=== PATIENT | female | born 1940 | race Caucasian/White ===

== ENCOUNTER → 2023-09-30 12:48 | Outpatient (REF) | payer MEDICARE, OTHER, SELFPAY | LOC: HWWDC 12:48 | PROVIDERS: ATTENDING PHYSICIAN Internal Medicine; REFERRING PHYSICIAN Obstetrics & Gynecology | DX: Z12.31 Encounter for screening mammogram for malignant neoplasm of breast (principal) | CPT/HCPCS: 77063; 77067 ==

== ENCOUNTER → 2023-11-26 09:51 | Outpatient (REF) | payer MEDICARE, OTHER, SELFPAY ==
[2023-11-26 12:29] LABS: % Basophils 1.3 % (0-2); % Eosinophils 0.1 % (0-6); % Immature Granulocytes 0.3 % (0-0.5); % Lymphocytes 20.7 % (20.5-51.1); % Monocytes 7.8 % (1.7-9.3); % Neutrophils 69.8 % (42.2-75.2); Absolute Basophils 0.1 10^3/uL (0-0.2); Absolute Lymphocytes 1.5 10^3/uL (1.2-3.4); Absolute Monocytes 0.6 10^3/uL (0.1-0.6); Absolute Neutrophils 5.2 10^3/uL (1.4-6.5); Hematocrit 42.2 % (37.0-47.0); Hemoglobin 13.8 g/dL (12.0-16.0); Mean Corp Hgb Conc. 32.7 g/dL (33.0-37.0); Mean Corpuscular Hgb 30.1 pg (27.0-31.0); Mean Corpuscular Volume 91.9 fL (81.0-99.0); Mean Platelet Volume 11.3 fL (7.4-10.4); Nucleated Red Blood Cells % 0 %; Platelet Count 264 10^3/uL (130-400); Red Blood Cell Count 4.59 10^6/uL (4.20-5.40); Red Cell Dist. Width 14.2 % (11.5-14.5); White Blood Cell Count 7.4 10^3/uL (4.8-10.8)
[2023-11-26 13:02] LABS: NT-proBNP 934 pg/ml
[2023-11-26 13:04] LABS: ALT (SGPT) 21 U/L (0-35); AST (SGOT) 29 U/L (14-36); Albumin 3.9 g/dl (3.5-5.0); Alkaline Phosphatase 72 U/L (38-126); Blood Urea Nitrogen 15 mg/dl (7-17); Calcium 10.1 mg/dl (8.4-10.2); Carbon Dioxide 28 mmol/L (22-30); Chloride 106 mmol/L (98-107); Glucose 99 mg/dl (70-99); LDH 182 U/L (120-246); Potassium 4.5 mmol/L (3.5-5.1); Sodium 142 mmol/L (135-145); Total Bilirubin 0.4 mg/dl (0.2-1.3); Uric Acid 3.8 mg/dl (2.5-6.2); eGFR > 60.00
[2023-11-29 02:17] LABS: Beta-2-Microglobulin 2.6 mg/L (<=3.0)
== END ==
LOC: HWLAB 09:51
PROVIDERS: ATTENDING PHYSICIAN Internal Medicine Hematology & Oncology; FAMILY PHYSICIAN Internal Medicine
DX: D47.2 Monoclonal gammopathy (principal)
CPT/HCPCS: 36415; 80053; 82232; 82784; 83521; 83615; 83880; 84155; 84165; 84550; 85025; 86334

== ENCOUNTER → 2023-12-01 10:05 | Outpatient (REF) | payer MEDICARE, OTHER, SELFPAY ==
[2023-12-01 14:11] LABS: Urine Protein 12 mg/dl (0-12)
[2023-12-01 14:52] LABS: 24 Hour Urine Total Volume 1700 ml
== END ==
LOC: HWLAB 10:05
PROVIDERS: ATTENDING PHYSICIAN Internal Medicine Hematology & Oncology; FAMILY PHYSICIAN Internal Medicine
DX: D47.2 Monoclonal gammopathy (principal)
CPT/HCPCS: 81050; 83521; 84156; 86335

== ENCOUNTER → 2023-12-10 09:47 | Outpatient (REF) | payer MEDICARE, OTHER, SELFPAY ==
[2023-12-10 12:12] LABS: Albumin 3.9 g/dl (3.5-5.0); Blood Urea Nitrogen 18 mg/dl (7-17); Calcium 9.5 mg/dl (8.4-10.2); Carbon Dioxide 27 mmol/L (22-30); Chloride 107 mmol/L (98-107); Glucose 91 mg/dl (70-99); Phosphorus 3.5 mg/dl (2.5-4.5); Potassium 4.7 mmol/L (3.5-5.1); Sodium 141 mmol/L (135-145); eGFR > 60.00
== END ==
LOC: HWLAB 09:47
PROVIDERS: ATTENDING PHYSICIAN Internal Medicine Cardiovascular Disease; FAMILY PHYSICIAN Internal Medicine
DX: I48.0 Paroxysmal atrial fibrillation (principal)
CPT/HCPCS: 36415; 80069

== ENCOUNTER 2024-02-24 06:17 | Day surgery (SDC) | payer MEDICARE, OTHER, SELFPAY ==
[2024-02-24] VITALS (9 sets, daily range): BP systolic 124–171; BP diastolic 63–101; BMI 28.4
[2024-02-24] MEDS: TYLENOL 1000 MG PO (09:34)
[2024-02-24] MEDS: NORMOSOL-R 1000 IV (09:35)
[2024-02-24] MEDS: DEMEROL 12.5 MG IV (13:04)
== END 2024-02-24 14:38 | disposition home or self-care (01) ==
LOC: SDS 06:17
PROVIDERS: ATTENDING PHYSICIAN Surgery; FAMILY PHYSICIAN Internal Medicine
DX: K64.8 Other hemorrhoids (principal); K64.2 Third degree hemorrhoids
CPT/HCPCS: 46947

== ENCOUNTER → 2024-04-27 09:29 | Outpatient (REF) | payer MEDICARE, OTHER, SELFPAY ==
[2024-04-27 13:08] LABS: HDL Cholesterol 71 mg/dl; LDL Cholesterol, Calculated 57 mg/dl; Total Cholesterol 144 mg/dl (50-199); Triglyceride 81 mg/dl (10-149); Very Low Density Lipoprotein 16 mg/dl (0-30)
== END ==
LOC: HWLAB 09:29
PROVIDERS: ATTENDING PHYSICIAN Internal Medicine
DX: E78.5 Hyperlipidemia, unspecified (principal)
CPT/HCPCS: 36415; 80061

== ENCOUNTER → 2024-05-24 10:06 | Outpatient (REF) | payer MEDICARE, OTHER, SELFPAY | LOC: HWRCS 10:06 | PROVIDERS: ATTENDING PHYSICIAN Internal Medicine Cardiovascular Disease; FAMILY PHYSICIAN Internal Medicine | DX: I70.0 Atherosclerosis of aorta (principal) | CPT/HCPCS: 93306 ==

== ENCOUNTER 2024-07-30 20:34 | Emergency (ER) | payer MEDICARE, OTHER, SELFPAY ==
[2024-07-30 20:37] VITALS: BP 185/105
--- NOTE | 2024-07-30 22:18 | ED.GENMED ---
History of Present Illness
General
Chief Complaint: Fall
Source: patient and spouse
Time Seen by Provider: 07/30/24 22:06
History of Present Illness
History of Present Illness:
84-year-old female on [facility] who had a trip and fall on , striking the front of her face. She got up, and was able to continue her day. She did apply ice to the forehead/face area. She denies loss of consciousness, neck pain, numbness,
tingling, double vision, headache, facial pain, dizziness, chest pain, shortness of breath, or other complaints. Today, she noted bruising in the inferior aspect of the orbital area bilaterally which concerned her and prompted her visit here.
Past History
Past History
ED Past Medical History: Arrthythmia, HTN and Hypercholesterolemia
ED Past Surgical History: Orthopedic
Social History
Tobacco: Non-smoker
Alcohol: None
Drug: None
Personal:
Living: with family
Phy Exam
Physical Exam
Physical Exam:
GENERAL: Alert , in no apparent distress
EYE: pupils equal and reactive, EOMI, no nystagmus, no photophobia, no pain with extraocular movements, visual starr intact
NECK: Supple, no significant adenopathy, No midline tenderness.
ENT: o/p clr, mmm, No septal hematoma, no fernandez. No infraorbital anesthesia. There is a small amount of bruising noted in the inferior aspect medially of the periorbital area soft tissue bilaterally as well as the right forehead. There is a
healing scab at the anterior aspect of the nose. No crepitus. No tenderness to palpation of facial bones, no deformity.
CARDIAC: Regular rate and rhythm, Systolic murmur noted .
LUNGS: Clear breath sounds bilaterally, no acute respiratory distress, no wheezes/rales/rhonchi
ABDOMEN: Soft, without focal tenderness, no r/g, no cvat
NEUROLOGICAL: Alert and oriented, no focal neuro deficits
SKIN: Warm and dry, skin intact.
MUSCULOSKELETAL: No edema, well perfused.
PSYCH: Normal and appropriate interaction.
Course
Orders/Labs/Results
Orders:
Orders
07/30/24 20:50
CT Head W/o Iv Contrast Urgent
Comment:
Reason For Exam: fall on xarelto
Vital Signs
Initial and Last Documented VS:
Initial Vital Signs
Temp Pulse Resp BP Pulse Ox
98.3 F 90 18 185/105 97
07/30/24 20:37 07/30/24 20:37 07/30/24 20:37 07/30/24 20:37 07/30/24 20:37
Last Documented Vital Signs
Temp Pulse Resp BP Pulse Ox
98.3 F 90 18 125/101 97
07/30/24 20:37 07/30/24 20:37 07/30/24 20:37 07/30/24 22:32 07/30/24 20:37
*Critical Care Note
Total Time (30-74mins, 75-104mins- exclusive of procedures): Not Applicable
Update Note
Update Note:
Patient presents to the Emergency Department with Fall
Number and Complexity of Problems Addressed at the Encounter
� Chronic conditions affecting care:
� Acute Exacerbation and/or Progression of Chronic Illness:
� Differential Diagnosis includes:But not limited to subdural hematoma, subarachnoid hemorrhage, epidural hematoma, periorbital fracture, etc. etc.
Amount and/or Complexity of Data to be Reviewed and Analyzed
� I performed an independent evaluation of and my interpretation is:
EKG:
CT:Read by vision that that is no acute intracranial process no evidence of acute intracranial hemorrhage, moderate frontal scalp hematoma. Air-fluid levels noted in the sphenoid sinuses incompletely visualized also present on
prior examination nonspecific though can be seen with acute sinusitis in the proper clinical context if concern for blood products from facial fracture outside of [id number] obtain dedicated CT of the face may be obtained
Xrays:
Laboratory Studies:
Other:
� Review of other/old records reveals:
� Clinical information was obtained by an independent historian: who is bedside
� Prescriptions/Medications Considered but not given:
� Further testing considered but not performed:
Risk of Complications and/or Morbidity or Mortality of Patient Management
� Social determinants of health affecting care:
� Discussion with other providers (PCP, Hospitalists, Consultants, etc):
� Escalation of care including admission/observation vs risk of discharge considered:Counseled patient regarding option to get a facial CT which she declines. Clinically I think it is very very unlikely that she has suffered a
facial fracture based on her history and physical exam. She does not have tenderness to palpation, deformity, etc. etc. to suggest otherwise. Discussed with patient portance of follow-up and reasons return to the ER.
ED Attending Note
-
Portions of this chart may have been created with voice recognition software.� Occasional wrong word or��sound alike� substitutions may have occurred due to the inherent limitations of voice recognition software.
Discharge Plan
Departure
Patient Disposition: Home (Routine Discharge)
Date of Disposition: 07/30/24
Time of Disposition: 22:23
Patient with high blood pressure during this ER visit?: Yes
Condition: Good
Discharge Problem:
Facial injury
Instructions: Contusion (DC), Preventing falls in adults, Skin Abrasions (DC), BLOOD PRESSURE
Prescriptions:
No Action
atorvastatin 10 MG tablet
10 mg PO QPM
alprazolam 0.25 MG tablet
0.25 mg PO DAILYPRN PRN (Reason: anxiety)
levocetirizine [Xyzal] 5 MG tablet
5 mg PO PRN PRN (Reason: allergies)
calcium carbonate-vitamin D3 1 EACH tablet
600 ea PO DAILY
L.acidoph,paracasei,B.animalis 1 EACH capsule
1 ea PO DAILY
magnesium 250 mg Tablet
250 mg PO DAILY
multivitamin Tablet
1 tab PO DAILY
Xarelto 20 mg Tablet
20 mg PO DAILY
diltiazem HCl 240 mg Capsule,Extended Release 24hr
240 mg PO QPM
cholecalciferol (vitamin D3) [Vitamin D3] 25 mcg (1,000 unit) Tablet
25 mcg PO DAILY
Benefiber Clear SF (dextrin) 3 gram/3.5 gram Powder In Packet
1 packet PO DAILY
ascorbic acid (vitamin C) [Vitamin C] 1,000 mg Tablet
1 g PO DAILY
valacyclovir [Valtrex] 500 mg Tablet
500 mg PO BID PRN (Reason: cold sore)
zinc 50 mg Capsule
50 mg PO DAILY
Prolia 60 mg/mL Syringe
60 mg SC [id number]
oxycodone 5 mg tablet
5 mg PO Q6H PRN (Reason: Pain) Qty: 30 0RF
Referrals:
Yady Lacey MD [Family Provider] - Follow up in 2-3 days
Activity Restrictions/Additional Instructions:
IF YOU DEVELOP DOUBLE VISION, BLURRY VISION, NECK PAIN, NUMBNESS, TINGLING, DIZZINESS, SEVERE HEADACHE, VOMITING, OR OTHER WORRISOME SIGNS, PLEASE RETURN TO THE ER IMMEDIATELY.
Interventions
Interventions:
*Risk Screen - Suicide Last Done: 07/30/24 20:37
*General Assessment Last Done: 07/30/24 20:37
*Neglect/Abuse Screening Last Done: 07/30/24 20:37
ED- Fall Risk Assessment Last Done: 07/30/24 21:41
*ED COVID-19 Vaccine History Last Done: 07/30/24 22:33
*Nursing Disposition Last Done: 07/30/24 22:33
ED-Musculoskeletal Assessment Last Done: 07/30/24 21:41
ED- Neurological Assessment Last Done: 07/30/24 21:41
ED-Skin Assessment Last Done: 07/30/24 21:41
Discharge Date and Time
Discharge Date/Time: 07/30/24 22:34
Print Language: TUNISIAN
[2024-07-30 22:32] VITALS: BP 125/101
== END 2024-07-30 22:34 | disposition home or self-care (01) ==
LOC: EMR 20:34
PROVIDERS: EMERGENCY PHYSICIAN Emergency Medicine; FAMILY PHYSICIAN Internal Medicine
DX: S09.93XA Unspecified injury of face, initial encounter (principal); S00.03XA Contusion of scalp, initial encounter; S00.12XA Contusion of left eyelid and periocular area, initial encounter; S00.11XA Contusion of right eyelid and periocular area, initial encounter; W01.0XXA Fall on same level from slipping, tripping and stumbling without subsequent striking against object, initial encounter; E78.00 Pure hypercholesterolemia, unspecified; I10 Essential (primary) hypertension; Z79.01 Long term (current) use of anticoagulants; Z88.0 Allergy status to penicillin
CPT/HCPCS: 99284; 70450

== ENCOUNTER → 2024-09-22 09:03 | Outpatient (REF) | payer MEDICARE, OTHER, SELFPAY ==
[2024-09-22 11:47] LABS: ALT (SGPT) 40 U/L (0-35); AST (SGOT) 40 U/L (14-36); Alkaline Phosphatase 76 U/L (38-126); Blood Urea Nitrogen 19 mg/dl (7-17); Calcium 9.2 mg/dl (8.4-10.2); Carbon Dioxide 29 mmol/L (22-30); Chloride 105 mmol/L (98-107); Glucose 89 mg/dl (70-99); HDL Cholesterol 66 mg/dl; LDL Cholesterol, Calculated 60 mg/dl; Phosphorus 3.5 mg/dl (2.5-4.5); Potassium 4.2 mmol/L (3.5-5.1); Sodium 140 mmol/L (135-145); Total Bilirubin 0.6 mg/dl (0.2-1.3); Total Cholesterol 144 mg/dl (50-199); Triglyceride 90 mg/dl (10-149); Very Low Density Lipoprotein 18 mg/dl (0-30); eGFR > 60.00
== END ==
LOC: HWLAB 09:03
PROVIDERS: ATTENDING PHYSICIAN Internal Medicine Cardiovascular Disease; FAMILY PHYSICIAN Internal Medicine
DX: I48.0 Paroxysmal atrial fibrillation (principal); I10 Essential (primary) hypertension; E78.5 Hyperlipidemia, unspecified
CPT/HCPCS: 36415; 80053; 80061; 84100

== ENCOUNTER → 2024-10-24 09:39 | Outpatient (REF) | payer MEDICARE, OTHER, SELFPAY ==
[2024-10-24 12:50] LABS: ALT (SGPT) 18 U/L (0-35); AST (SGOT) 25 U/L (14-36)
[2024-10-24 19:23] LABS: Hepatitis A IgM Antibody Negative (Negative)
[2024-10-24 19:33] LABS: Hepatitis A Antibody, Total Positive (Negative); Hepatitis B Surface Antibody Negative; Hepatitis C Antibody Negative (Negative)
== END ==
LOC: HWLAB 09:39
PROVIDERS: ATTENDING PHYSICIAN Internal Medicine
DX: R74.8 Abnormal levels of other serum enzymes (principal)
CPT/HCPCS: 36415; 84450; 84460; 86706; 86708; 86709; 86803

== ENCOUNTER → 2024-11-01 12:32 | Outpatient (REF) | payer MEDICARE, OTHER, SELFPAY | LOC: HWWDC 12:32 | PROVIDERS: ATTENDING PHYSICIAN Internal Medicine; REFERRING PHYSICIAN Internal Medicine Cardiovascular Disease | DX: Z12.39 Encounter for other screening for malignant neoplasm of breast (principal) | CPT/HCPCS: 77063; 77067 ==

== ENCOUNTER → 2025-01-02 10:09 | Outpatient (REF) | payer MEDICARE, OTHER, SELFPAY ==
[2025-01-02 12:36] LABS: % Basophils 1.3 % (0-2); % Immature Granulocytes 0.1 % (0-0.5); % Lymphocytes 24.2 % (20.5-51.1); % Monocytes 8.6 % (1.7-9.3); % Neutrophils 65.8 % (42.2-75.2); Absolute Basophils 0.1 10^3/uL (0-0.2); Absolute Lymphocytes 1.7 10^3/uL (1.2-3.4); Absolute Monocytes 0.6 10^3/uL (0.1-0.6); Absolute Neutrophils 4.7 10^3/uL (1.4-6.5); Hematocrit 39.2 % (37.0-47.0); Hemoglobin 12.8 g/dL (12.0-16.0); Mean Corp Hgb Conc. 32.7 g/dL (33.0-37.0); Mean Corpuscular Hgb 28.8 pg (27.0-31.0); Mean Corpuscular Volume 88.3 fL (81.0-99.0); Mean Platelet Volume 10.8 fL (7.4-10.4); Nucleated Red Blood Cells % 0 %; Platelet Count 254 10^3/uL (130-400); Red Blood Cell Count 4.44 10^6/uL (4.20-5.40); Red Cell Dist. Width 16.1 % (11.5-14.5); White Blood Cell Count 7.1 10^3/uL (4.8-10.8)
[2025-01-02 15:54] LABS: ALT (SGPT) 21 U/L (0-35); AST (SGOT) 27 U/L (14-36); Alkaline Phosphatase 62 U/L (38-126); Blood Urea Nitrogen 17 mg/dl (7-17); Calcium 9.3 mg/dl (8.4-10.2); Carbon Dioxide 29 mmol/L (22-30); Chloride 108 mmol/L (98-107); Glucose 74 mg/dl (70-99); Sodium 143 mmol/L (135-145); Total Bilirubin 0.4 mg/dl (0.2-1.3); eGFR > 60.00
== END ==
LOC: HWRAD 10:09
PROVIDERS: ATTENDING PHYSICIAN Internal Medicine Hematology & Oncology; FAMILY PHYSICIAN Internal Medicine
DX: M81.0 Age-related osteoporosis without current pathological fracture (principal); D47.2 Monoclonal gammopathy; R77.9 Abnormality of plasma protein, unspecified
CPT/HCPCS: 36415; 77080; 80053; 82784; 83521; 84155; 84165; 85025; 86334